=== PATIENT | female | born 2000 | race Caucasian/White ===

== ENCOUNTER 2025-02-22 23:43 | Emergency (ER) | payer OTHER ==
[~2025-02-22] VITALS: Ht 162.6 cm; Wt 61.2 kg
[2025-02-23 00:59] LABS: PLATELET COUNT (AUTO) 288 K/uL (150-450); RED BLOOD CELL COUNT(AUTO) 4.30 MIL/uL (4.0-5.2); RED CELL DISTRIBUTION WIDTH 12.2 % (11.5-15.0); WHITE BLOOD COUNT (AUTO) 6.7 K/uL (4.3-11.0)
[2025-02-23] MEDS ORDERED: KETOROLAC TROMETHAMINE 15 MG/ML VIAL ONE (01:09)
[2025-02-23 01:18] LABS: CALCIUM, SERUM 8.7 mg/dL (8.5-10.1); CREATININE 0.7 mg/dL (0.6-1.3); SODIUM SERUM 138.0 mmol/L (136-145); UREA NITROGEN, BLOOD 18.0 mg/dL (7-18)
[2025-02-23 01:21] LABS: ASPARTATE AMINOTRANSFERASE 22.0 U/L (15-37); PREGNANCY TEST SERUM QUAN 1.0 mIU/mL (0-6); TOTAL PROTEIN, SERUM 7.7 g/dL (6.4-8.2)
[2025-02-23] MEDS: KETOROLAC TROMETHAMINE 15 MG/ML VIAL IV ONE (01:21)
[2025-02-23] MEDS ORDERED: IOHEXOL-300 100 ML VIAL IV ONE (01:28)
[2025-02-23] MEDS ORDERED: IV NS 0.9% 250 ML IV ONE (01:28)
[2025-02-23] MEDS ORDERED: CT SWABBABLE VALVE TRANS SET 1 EA INFUS.SET MC ONE (01:28)
[2025-02-23] MEDS ORDERED: CEPH-570 PO (04:03)
[2025-02-23] MEDS ORDERED: KETO10TA2 PO (04:03)
[2025-02-23 04:30] VITALS: BP 110/71; TEMP 98; O2SAT 99
== END 2025-02-23 04:31 | disposition home or self-care (01) ==
LOC: ER 23:49
DX: K62.5 Hemorrhage of anus and rectum (principal); R10.20 Pelvic and perineal pain unspecified side
CPT/HCPCS: 99285; 74177; 96374; 85025; 36415; 80053; 84702; J1885; J7050; Q9967